=== PATIENT | male | born 1960 | race Caucasian/White ===

== ENCOUNTER 2017-01-29 12:10 | Emergency (ER) | payer MEDICAID, OTHER ==
[~2017-01-29] VITALS: Ht 172.7 cm; Wt 71.0 kg
[2017-01-29 12:13] VITALS: Ht 172.7 cm; Wt 71.0 kg
[2017-01-29] MEDS ORDERED: HYDR-902 PO (12:44)
[2017-01-29] MEDS ORDERED: HYDROCODONE/APAP (10/325) TAB PO ONE (13:00)
--- NOTE | 2017-01-29 13:48 | ERD ---
ER Documentation Chief Complaint Date/Time DATE: 01/29/17 TIME: 13:46 Chief Complaint left leg pain s/p fx yesterday HPI Patient is a 56-year-old male with no medical problems who presents with left leg pain. He was diagnosed with a left leg fracture at the ankle yesterday at [facility]. He fell yesterday. He has pain and tried 5/325 [place]. However he could not sleep and is continuing to have pain so he came to the emergency department. The patient one previous visit to the ER in 2014. He does not know the name of his primary doctor. ROS All systems reviewed and are negative except as per history of present illness. Medications Home Meds Active Scripts Hydrocodone/Acetaminophen ([place] 10-325 Tablet) 1 Each Tablet, 1 TAB PO Q6H Y for PAIN, #7 TAB Prov:WILIAN CONTI MD 01/29/17 Allergies Allergies: Coded Allergies: No Known Allergy (Unverified , 09/21/14) PMhx/Soc History of Surgery: Yes (RIGHT FOOT SURGERY) Anesthesia Reaction: No Hx Neurological Disorder: No Hx Respiratory Disorders: No Hx Cardiac Disorders: No Hx Psychiatric Problems: No Hx Miscellaneous Medical Probl: Yes (CIRRHOSIS) Hx Alcohol Use: No Hx Substance Use: No Hx Tobacco Use: No Smoking Status: Never smoker FmHx Family History: No diabetes Physical Exam Vitals Vital Signs Date Time Temp Pulse Resp B/P Pulse Ox O2 Delivery O2 Flow Rate FiO2 01/29/17 12:13 98.9 118 18 148/87 95 Physical Exam Const: No acute distress Head: Atraumatic Eyes: Normal Conjunctiva ENT: Normal External Ears, Nose and Mouth. Neck: Full range of motion..~ No meningismus. Resp: Clear to auscultation bilaterally Cardio: Regular rate and rhythm, no murmurs Abd: Soft, non tender, non distended. Normal bowel sounds Skin: No petechiae or rashes Back: No midline or flank tenderness Ext: Left leg is in a splint at this time, there is good cap refill in all 5 toes to the left foot, no signs of arterial insufficiency Neur: Awake and alert Psych: Normal Mood and Affect Results 24 hrs Current Medications Medications (Trade) Dose Ordered Sig/Amanda Route PRN Reason Start Time Stop Time Status Last Admin Dose Admin Acetaminophen/ Hydrocodone Bitart ([place] (10/325)) 1 tab ONCE ONCE PO 01/29/17 13:00 01/29/17 13:01 DC 01/29/17 12:56 Procedures/MDM Patient is a 56-year-old male presents with acute leg pain after fracture yesterday. The patient was given [place] 10/325 and will be given a prescription for the [place] 10/325. The patient will need to follow-up with Dr. Marley from orthopedic surgery with orthopedic surgeon of the patient's choosing. The patient can return for any worsening symptoms. He will likely need orthopedic fixation but does not need this emergently today. Splint is already in place. Departure Diagnosis: Primary Impression: Ankle fracture Encounter type: initial encounter Fracture type: closed Laterality: left Qualified Code: S82.892A - Ankle fracture, left, closed, initial encounter Condition: Fair Patient Instructions: Fracture, Ankle (General) Referrals: JOSH MARLEY MD Additional Instructions: Specialist:Usted tiene luis condicin mdica que requiere que merary a un especialista dentro de los prximos 1-2 whelan.POR FAVOR,CON [place] SEGUIMIENTO DE PRIMARIA PHSICIAN refferal. SI USTED NO TIENE UN MDICO GENERAL Y / O USTED NO PUEDE PAGAR dary a un mdico,los siguientes haddad RECURSOS sido suministrado a usted. ES [place] RESPONSABILIDAD PARA SER VISTOS POR EL ESPECIALISTA: WILIAN CONTI MD Jan 29, 2017 13:48
== END 2017-01-29 13:28 | disposition home or self-care (01) ==
LOC: FTE 12:10
DX: S82.892A Other fracture of left lower leg, initial encounter for closed fracture (principal); W18.39XA Other fall on same level, initial encounter; Y92.9 Unspecified place or not applicable
CPT/HCPCS: 99283